=== PATIENT | male | born 1990 | race African-American/Black ===

== ENCOUNTER 2023-06-30 12:06 | Emergency (ER) | payer OTHER, SELFPAY ==
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
--- NOTE | ~2023-06-30 | XR_ITS ---
EXAMINATION: XR RIBS, LEFT CLINICAL INFORMATION: Rib pain COMPARISON: None available. TECHNIQUE: 7 views of the left ribs were obtained. FINDINGS: The cardiomediastinal silhouette is within normal limits. The lungs are well expanded. There is no focal consolidation, edema, or effusion. No pneumothorax. There is a skin marker positioned along the lateral aspect of the mid/inferior cage. No acute displaced left rib fracture is identified. No acute fracture is otherwise seen. XR/XR ribs LT min 3V w CXR1V IMPRESSION: No evidence of acute cardiopulmonary process. No acute displaced left rib fracture is identified. If there are persistent clinical concern/symptoms, consider follow-up radiographs or CT .
[2023-06-30 12:31] VITALS: BP 166/90; PULSE 77; RESP 18; TEMP 36.7; O2SAT 98; BMI 22.6
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
== END 2023-06-30 15:20 | disposition home or self-care (01) ==
PROVIDERS: Emergency Provider Emergency Medicine; PCP Internal Medicine
DX: S29.9XXA Unspecified injury of thorax, initial encounter (principal); S49.92XA Unspecified injury of left shoulder and upper arm, initial encounter; R07.81 Pleurodynia; V53.5XXA Driver of pick-up truck or van injured in collision with car, pick-up truck or van in traffic accident, initial encounter; Y93.9 Activity, unspecified; Y92.410 Unspecified street and highway as the place of occurrence of the external cause; Y99.9 Unspecified external cause status
CPT/HCPCS: 71101; 73030; 99282; 99283